=== PATIENT | female | born 1940 | race Caucasian/White ===

== ENCOUNTER 2017-05-19 11:06 | Emergency (ER) | payer BC, MEDICAID ==
[~2017-05-19] VITALS: Ht 154.9 cm; Wt 70.0 kg
[2017-05-19 16:20] VITALS: BP 124/84
== END 2017-05-19 16:57 | disposition home or self-care (01) ==
LOC: ER 12:44
DX: J40 Bronchitis, not specified as acute or chronic (principal); R03.0 Elevated blood-pressure reading, without diagnosis of hypertension; K21.9 Gastro-esophageal reflux disease without esophagitis
CPT/HCPCS: 71045; 99283